=== PATIENT | male | born 1945 | race Two or more races ===

== ENCOUNTER 2024-03-03 09:15 | Inpatient (IN) | payer OTHER ==
[~2024-03-03] VITALS: Ht 167.6 cm; Wt 68.0 kg
[2024-03-03 10:57] LABS: PH,URINE 5.5 (5.0-8.0); URINE APPEARANCE Clear; URINE BILIRRUBIN Negative (NEGATIVE); URINE BLOOD Trace; URINE COLOR Yellow; URINE GLUCOSE Negative (NEGATIVE); URINE KETONE Negative (NEGATIVE); URINE LEUKOCYTE Negative; URINE NITRATE Negative; URINE PROTEIN Negative (NEGATIVE); URINE UROBILINOGEN 0.2 E.U./dl
[2024-03-03 10:58] LABS: URINE BACTERIA 12.5 uL (0.0-1933); URINE EPITHELIAL CELLS 2.6 uL (0.0-38.8); URINE RBC 28.3 uL (0.0-20.8); URINE WBC 2.3 uL (0.0-23.2)
[2024-03-03 11:03] LABS: URINE CAST 0.15 uL (0.0-1.40)
[2024-03-03 11:07] LABS: HEMATOCRIT 41.2 % (39.0-48.0); HEMOGLOBIN 13.7 g/dL (13-16.00); MEAN CELL VOLUME 82.6 fL (80.0-100.00); MEAN CORPUSCULAR HEMOGLOBIN 27.4 pg (27.00-32.0); MEAN CORPUSCULAR HGB CONC 33.2 g/dl (32.0-36.0); PLATELET COUNT 228 K/uL (150-450); RED BLOOD COUNT 4.99 M/uL (4.00-6.00); RED CELL DISTRIBUTION WIDTH 15.4 % (11.5-14.5)
[2024-03-03] MEDS ORDERED: SYNTHROID75 MCG PO (11:17)
[2024-03-03] MEDS ORDERED: COZAAR50 MG PO (11:17)
[2024-03-03] MEDS ORDERED: ELIQUIS5 MG PO (11:17)
[2024-03-03] MEDS ORDERED: D3-200050 MCG PO (11:18)
[2024-03-03] MEDS ORDERED: PROTONIX40 MG PO (11:18)
[2024-03-03] MEDS ORDERED: ROSUVASTATIN CA20 MG PO (11:18)
[2024-03-03 11:19] VITALS: BP 160/82
[2024-03-03 11:24] LABS: INR 1.13; PARTIAL THROMBOPLASTIN TIME 32.5 SECONDS (22.0-34.0); PROTHROMBIN TIME 12.2 SECONDS (9.0-11.5)
[2024-03-03 11:58] LABS: ALBUMIN 4.1 gm/dL (3.4-5.0); BILIRUBIN TOTAL 1.23 mg/dL (0.3-1.2); CALCIUM 9.4 mg/dL (8.5-10.1); CREATININE SERUM 0.77 mg/dL (0.70-1.30); GFR 97.21; GLOBULINA 3.9 G/DL (2.4-3.5); POTASSIUM 4.9 mEq/L (3.5-5.1)
[2024-03-07] MEDS ORDERED: CEFOXITIN SODIUM 2,000 MG VIAL IV ONE ×3 (13:10→21:18)
[2024-03-07] MEDS ORDERED: BUPIVACAINE HCL/MPF 0.5% 30ML VIAL ONE (16:05)
[2024-03-07] MEDS ORDERED: LIDOCAINE HCL 1%/EPINEPHRINE 20ML VIAL IJ ONE (16:06)
[2024-03-07] MEDS ORDERED: ENOXAPARIN SODIUM 40 MG/0.4 ML SYRINGE SUBCUTANEO SCH (18:31)
[2024-03-07] MEDS ORDERED: MORPHINE SULFATE 4 MG/ML CARTRIDGE IV SCH (18:32)
[2024-03-07] MEDS ORDERED: FAMOTIDINE/PF 20 MG/2 ML VIAL IV SCH (21:00)
[2024-03-07] MEDS ORDERED: CEFOXITIN SODIUM 1,000 MG VIAL IV SCH (21:00)
[2024-03-07] MEDS ORDERED: FAMOTIDINE/PF 20 MG/2 ML VIAL ONE (21:19)
[2024-03-07] MEDS ORDERED: MORPHINE SULFATE 4 MG/ML VIAL IV ONE (21:45)
[2024-03-08] MEDS ORDERED: LEVOTHYROXINE SODIUM 75 MCG TABLET PO SCH (06:00)
[2024-03-08] MEDS ORDERED: SYNTHROID 75 MCG PO SCH (06:00)
[2024-03-08] MEDS ORDERED: LOSARTAN POTASSIUM 50 MG TABLET PO SCH (09:00)
[2024-03-08 09:30] VITALS: BP 135/70; O2SAT 98
[2024-03-08 16:53] VITALS: BP 131/70; O2SAT 97
[2024-03-09] VITALS: BP 127/66; O2SAT 100
[2024-03-09] MEDS ORDERED: PATIENTS OWN MEDICATION (MEDICAMENTO EN PISO) PO SCH (06:00)
[2024-03-09 08:53] VITALS: BP 137/81; O2SAT 97
== END 2024-03-09 10:39 | disposition home or self-care (01) | DRG 331 ==
LOC: O/R 03-07 05:27 → SURG 03-07 07:00
PROVIDERS: ADMIT Surgery; ATTEND Surgery
PROC: 0DBP4ZZ Excision of Rectum, Percutaneous Endoscopic Approach (ICD-10-PCS; 2024-03-07)
PROC: 0DJD8ZZ Inspection of Lower Intestinal Tract, Via Natural or Artificial Opening Endoscopic (ICD-10-PCS; 2024-03-07)
PROC: 0DTN4ZZ Resection of Sigmoid Colon, Percutaneous Endoscopic Approach (ICD-10-PCS; principal; 2024-03-07 07:00)
DX: C19 Malignant neoplasm of rectosigmoid junction (principal); R59.0 Localized enlarged lymph nodes